=== PATIENT | female | born 1985 | race Caucasian/White ===

== ENCOUNTER 2021-11-12 12:18 | Outpatient (CLI) | payer OTHER, SELFPAY ==
--- NOTE | ~2021-11-12 | US_ITS ---
EXAMINATION:US venous doppler LE RT INDICATION:Right leg pain TECHNIQUE: Multiple grayscale, color flow and Doppler images of the right lower extremity deep venous systems were obtained and reviewed. COMPARISON:No prior studies for comparison. FINDINGS: The common femoral, superficial femoral and popliteal veins demonstrate normal respiratory variation, augmentation and compressibility. Color flow is also seen within the posterior tibial, pe roneal, greater saphenous and profunda veins. IMPRESSION: 1: No lower extremity deep venous thrombosis. Reviewed, dictated and finalized at location B.
== END 2021-11-12 12:19 | disposition home or self-care (01) ==
PROVIDERS: PCP Family Medicine; Visit Provider Physician Assistant
DX: M79.604 Pain in right leg (principal)
CPT/HCPCS: 93971

== ENCOUNTER 2023-03-20 16:49 | Outpatient (CLI) | payer OTHER, SELFPAY ==
--- NOTE | ~2023-03-20 | XR_ITS ---
XR knee LT 3V 03/20/2023 17:12 Indication: Bilateral knee pain Procedure: 3 views left knee Comparison: No prior studies for comparison. Findings: No fracture, subluxation or dislocation. No significant joint effusion. No foreign bodies. Impression: 1: No significant bone or joint abnormality. Reviewed, dictated and finalized at location A. Impression: 1: No significant bone or joint abnormality.
--- NOTE | ~2023-03-20 | XR_ITS ---
XR knee RT 3V 03/20/2023 17:11 Indication: Right knee pain Procedure: 3 views right knee Comparison: No prior studies for comparison. Findings: There is anatomic alignment. No fracture, subluxation or dislocation. No joint effusion. No foreign bodies. Small bone islands in the distal aspect of the femur. Impression: 1: No significant bone or joint abnormality. Reviewed, dictated and finalized at location A. Impression: 1: No significant bone or joint abnormality.
== END 2023-03-20 16:50 | disposition home or self-care (01) ==
PROVIDERS: PCP Family Medicine; Visit Provider Nurse Practitioner Family
DX: M25.561 Pain in right knee (principal); M25.562 Pain in left knee
CPT/HCPCS: 73562

== ENCOUNTER → 2023-04-17 12:26 | Outpatient (CLI) | payer OTHER, SELFPAY ==
--- NOTE | ~2023-04-17 | MR_ITS ---
MRI of the left knee Clinical history: Pain Technique: Coronal proton density and proton density-weighted images, sagittal proton-density and T2 fat-sat images, and axial proton-density fat-saturated images were acquired. Findings: Anterior and posterior cruciate ligaments are intact. Medial collateral ligament and the la teral collateral ligament complex are intact. Popliteus tendon is intact. There is prominent horizontal tear of the posterior horn of the medial meniscus extending to the body segment. No lateral meniscal tear seen. Articular cartilage is well preserved in all 3 joint compartment. Bone marrow signals are unremarkabl e. Extensor mechanism is intact. Minimal joint effusion present. No Young's cyst. Impression: Horizontal tear of the posterior horn and body of the medial meniscus. Reviewed, dictated and finalized at location M. SPECIALIST Impression: Horizontal tear of the posterior horn and body of the medial meniscus.
== END ==
PROVIDERS: PCP Family Medicine; Visit Provider Nurse Practitioner Family
DX: S83.242A Other tear of medial meniscus, current injury, left knee, initial encounter (principal); X58.XXXA Exposure to other specified factors, initial encounter
CPT/HCPCS: 73721

== ENCOUNTER 2025-02-09 10:54 | Outpatient (CLI) | payer OTHER, SELFPAY ==
--- NOTE | ~2025-02-09 | MR_ITS ---
EXAMINATION: MR TMJS DATE: 02/09/2025 12:00 INDICATION: Temporomandibular joint arthralgia TECHNIQUE: Magnetic resonance imaging (MRI) of the temporomandibular joints was performed without intravenous contrast. Sequences included closed-mouth sagittal T2-weighted FSE and PD-weighted FSE and coronal T1-weighted FSE and open-mouth sagittal T2-weighted FSE and PD-weighted FSE and coronal T1-weighted FSE. COMPARISON: None. FINDINGS: Right temporomandibular joint: There is anterior displacement of the disc in the closed mouth position with the posterior band of the disc positioned along the anterior margin of the mandibular condyle. There is partial recapture of the disc in the open-mouth position with the posterior band of the disc between the mandibular condyle and the temporomandibular fossa. The posterior band of the disc shape and with amorphous increased signal consistent with likely secondary degeneration. Moderate temporomandibular osteoarthritis with remodeling of the mandibular condyle which appears smaller than the contralateral left mandibular condyle and with irregularity to the articular cortex. Left temporomandibular joint: There is anterior displacement of the disc in the closed mouth position normal recapture of the disc in the open-mouth position. The disc appears normal in morphology and signal. The mandibular condyle and temporomandibular fossa appear normal with no significant osteoarthritis. IMPRESSION: 1. 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 2. Anterior displacement of the still normal-appearing disc at the left temporomandibular joint which recaptures in the open-mouth position and without significant osteoarthritis at the temporomandibular joint.. Reviewed, dictated and finalized at location A. IMPRESSION: 1. 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 2. Anterior displacement of the still normal-appearing disc at the left temporo mandibular joint which recaptures in the open-mouth position and without signif icant osteoarthritis at the temporomandibular joint..
== END 2025-02-09 10:55 | disposition home or self-care (01) ==
PROVIDERS: PCP Family Medicine
DX: M26.621 Arthralgia of right temporomandibular joint (principal)
CPT/HCPCS: 70336

== ENCOUNTER 2025-02-21 13:41 | Outpatient (CLI) | payer OTHER, SELFPAY ==
--- OUTSIDE RECORDS SUMMARY | 2024-01-11 10:50 | XMS_ITS ---
Author Organization [facility] Address [address] [place], [place] [id number] Care Team Providers Care Medicine Man Name Role Phone Daniel Anand Unavailable Unavailable BRYAN GRIER Unavailable [phone] Allergies No Known Allergies REASON FOR VISIT The patient was experiencing bilateral heel and arch pain. She did some online research and self-diagnosed herself with plantar fascitis. By upgrading her shoes, stretching, and OTC inserts, the painin the right foot resolved. The pain in the left has not Medications Medication SIG (Take, Route, Fr equency, Duration) Notes Start Date End Date Status Multivitamin Active Nabumetone 500 MG 1 tablet Orally Twic e a day; Duration: 14 days 01/11/2024 01/25/2024 Active busPIRone HCl Active LORazepam Active Fluoxetine Active Probiotic Active Claritin Active Vital Signs Weight 185 lbs 01/11/2024 Weight-kg 83.91 kg 01/11/2024 Encounters Encounter Location Date Provider Diagnosis [facility] [address] [place], [place] [id number] 01/11/2024 BRYAN GRIER Plantar fascial fibromatosis M72.2 ; Calcaneal spur, left foot M77.32 and Left foot pain M79.672 Assessments Encounter Date Diagnosis (ICD Code) Assessment Notes Treatment Notes Treatment Clinical Notes Section Notes 01/11/2024 Plantar fascial fibromatosis (ICD-10 - M72.2) Plantar Fascitis: I discussed anti-inflammato ry treatment options and various means of pronation control with the patient. I educated the patient on icing and stretching, supportive shoegear, and the use of orthotic devices. PowerStep Inserts: The patient was dispensed and fitted with over the counter arch supports. The patient was educated on their use and effect. All questions were answered. Shoe Recommendation: Advised patient on appropriate shoe gear for protection, healing and good foot health. 01/11/2024 Calcaneal spur, left foot (ICD-10 - M77.32) 01/11/2024 Left foot pain (ICD-10 - M79.672) Plan Of Treatment Medication Medication Name Sig Start Date Stop Date Notes Nabumetone 500 MG 1 tablet Orally Twic e a day; Duration: 14 days 01/11/2024 01/25/2024 Treatment Notes Assessment Notes Plantar fascial fibromatosis Plantar Fascitis: I discussed anti-inflammatory treatment options and various means of pronation control with the patient. I educated the patient on icing and stretching, supportive shoegear, and the use of orthotic devices. PowerStep Inserts: The patient was dispensed and fitted with over the counter arch supports. The patient was educated on their use and effect. All questions were answered. Shoe Recommendation: Advised patient on appropriate shoe gear for protection, healing and good foot health. Next Appt Details Follow Up: 3 Weeks, Reason: See how relafen and powersteps helped plantar fascitis. Orthotic scanning prn Progress Notes * Neris FRANKSDOB:1985 (39 yo F)Acc No.[id number]:01/11/2024 Progress Notes Patient: Neris JUNIOR Provider: Jeane Grier DPM :1985 A ge:38 Y S ex:Female Date:01/11/2024 Address:[facility] SHAYY FARIAS, JORDY Hidalgo [id number] Subjective: * Chief Complaints: * 1 . The patient was experiencing bilateral heel and arch pain. She did some online research and self-diagnosed herself with plantar fascitis. By upgrading her shoes, stretching, and OTC inserts, the pain in the right foot resolved. The pain in the left has not. * HPI: H PI: New Complaint P atient presents for a new patient consultation. Patient complains of an issue to left foot pain. Patient states pain started in both feet one month ago, but has since stopped in right foot. Pain located on bottom on left foot. Patient denies any injury. MA: LB. * ROS: G eneral / Constitutional: Patient denies c hills, fever, weakness, night sweats. M usculoskeletal: Patient denies c hildhood foot problems, weakness. ? P eripheral Vascular: Patient denies u lceration of feet, cold extremities. ? S kin: Patient denies u lcerations, discoloration. ? N eurologic: Patient denies b alance difficulty, confusion, difficulty speaking, dizziness. * Medical History: P sychiatric Disorder. * Family History: F ather: Diabetic. M other: cancer. * Medications: T aking Claritin , Taking Probiotic , Taking Multivitamin , Taking LORazepam , Taking busPIRone HCl , Taking Fluoxetine , Medication List reviewed and reconciled with the patient * Allergies: N .K.D.A. Objective: * Vitals: S hoe Size: 9.5, Wt:185lbs, Wt-k.91 kg. * Examination: C onstitutional: Constitutional T he patient is awake, alert, well developed, well groomed and well nourished.. D ermatologic: Skin findings: S kin is warm, dry, supple with no breaks in the skin.. V ascular: Dorsalis pedis pulse: 2 /4, bilateral. Posterior tibial pulse: 2 /4, bilaterally. Capillary refill: l ess than 3 seconds. Edema: N o edema, bilateral. N eurologic: Gross sensation G ross sensation is intact to light touch..? M usculoskeletal: Muscle Strength M uscle strength is 5/5 in regards to dorsiflexion, plantarflexion, inversion, and eversion in bilateral lower extremities.. ? R adiographs: Left Foot N ormal: No evidence of fracture, dislocation, or other osseous lesions., Heel Spur: There is a plantar spur noted to the calcaneus.. ? Assessment: * Assessment: 1. P lantar fascial fibromatosis - M72.2 (Primary) 2 . C alcaneal spur, left foot - M77.32 3 . L eft foot pain - M79.672 Plan: * Treatment: * Procedure Codes: 7 3630 X-RAY EXAM OF FOOT, Modifiers: LT * Follow Up: 3 Weeks (Reason: See how relafen and powersteps helped plantar fascitis. Orthotic scanning prn) * Billing Information: * Visit Code: 01329 Office Visit, New Pt., Level 3. * Procedure Codes: 70837 X-RAY EXAM OF FOOT. Modifiers: LT * Electronic signature of BRYAN GRIER DPM on 02/21/2025 at 03:23 PM CDT Sign off status: Pending * Provider: Jeane Grier DPM Date: 0 01/11/2024 Generated for Kate aldana/Kalyan/Jc on: 0 02/21/2025 03:23 PM CDT History and Physical Notes * HPI (History of Present Illness) Category Sub-Category Detail Notes Category Not es HPI New Complaint Patient presents for a new patient consultation. Patient complains of an issue to left foot pain. Patient states pain started in both feet one month ago, but has since stopped in right foot. Pain located on bottom on left foot. Patient denies any injury. MA: LB Examination Category Sub-Category Detail Notes Category Not es Dermatologic Skin findings: Skin is warm, dr y, supple with no breaks in the skin. Neurologic Gross sensation Gross sensation is intact to light touch. Vascular Dorsalis pedis pulse: 2/4, bilateral Edema: No edema, bilateral Capillary refill: less than 3 seconds Posterior tibial pulse: 2/4, bilaterally Musculoskeletal Muscle Strength Muscle strength is 5/5 in regards to dorsiflexion, plantarflexion, inversion, and eversion in bilateral lower extremities. Constitutional Constitutional The patient is a wake, alert, well developed, well groomed and well nourished. Radiographs Left Foot Normal: No evide nce of fracture, dislocation, or other osseous lesions., Heel Spur: There is a plantar spur noted to the calcaneus.
--- NOTE | ~2025-02-21 | MM_ITS ---
EXAMINATION: MM diagnostic geraldine BI w mickey HISTORY: Palpable abnormality in the right TECHNIQUE: [Diagnostic images of both breasts were performed using full field digital mammography. 3-D tomosynthesis were also obtained and synthetic 2-D images were generated. CAD analysis was submitted and interpreted. High- resolution bilateral breast ultrasound was performed.] ] COMPARISON: None available BREAST PARENCHYMAL COMPOSITION: The breasts are almost entirely fatty. FINDINGS: MAMMOGRAPHIC FINDINGS: No suspicious calcifications. Focal asymmetry in the lower inner quadrant of the right breast, posterior depth. The finding is probably postsurgical change. No sonographic correlate. The finding is probably benign. Focal asymmetry in the central left breast, posterior depth. The finding is probably postsurgical change. The finding is probably benign. Asymmetry in the medial left breast, posterior depth. No sonographic correlate. The findings probably benign ULTRASOUND: No sonographic abnormality identified in the area of palpable concern in the right breast at 3:00 position 7 cm from the nipple. There is a 4 x 4 x 3 mm hypoechoic cyst versus solid mass in the left breast at the 8:30 position 10 cm from the nipple anterior depth. Margins are partially circumscribed. No internal color Doppler flow. No posterior acoustic shadowing. There is a 3 x 4 x 3 mm anechoic cyst in the left breast and 9:00 position 8 cm from nipple. There is a 7 x 7 x 7 mm hypoechoic cyst versus solid mass in the left breast at 11:00 position 5 cm from the nipple middle depth. Anterior margin is hyperechoic possibly partially calcified. No internal color Doppler flow. Small and posterior acoustic shadowing. The finding is probably benign. The finding may represent fat necrosis. IMPRESSION/RECOMMENDATION: 1. Probably benign findings in both breasts. A bilateral diagnostic mammogram and a bilateral diagnostic breast ultrasound in 6 months is recommended. BI-RADS 3-Probably benign-Short interval follow-up suggested. Reviewed, dictated and finalized at location [facility]. IMPRESSION/RECOMMENDATION: 1. Probably benign findings in both breasts. A bilateral diagnostic mammogram a nd a bilateral diagnostic breast ultrasound in 6 months is recommended. BI-RADS 3-Probably benign-Short interval follow-up suggested.
--- NOTE | ~2025-02-21 | US_ITS ---
Please see the mammogram report from 02/21/2025 for the combined mammogram and breast ultrasound report for the case from 02/21/2025. Reviewed, dictated and finalized at location Q.
--- OUTSIDE RECORDS SUMMARY | 2025-02-21 15:24 | XMS_ITS | Clinical Summary ---
Author Organization [facility] Address [address] [place] [address] Care Team Providers Care Assistant Professor Surgical Technology Name Role Phone Daniel Anand MD Primary Care Provider [phone] Allergies No known active allergies Medications clonazePAM (KlonoPIN) 0.5 mg tablet take 1 tablet by oral route 2 times every day 0 0 4 Active Additional Information Patient not taking.Reported on 04/23/2021 norethindrone-e .estradiol-iron (LOESTRIN 24 FE) 1 mg-20 mcg (24)/75 mg (4) per tablet take 1 tablet by oral route every day 28 12 5 Active Additional Information Patient not taking.Reported on 06/25/2022 FLUoxetine (PROzac) 40 mg capsule take 1 capsule by oral route every day in the morning 7 0 5 Active L. gasseri-B. bifidum-B longum (PROBIOTIC COLON CARE) 1.5 billion cell capsule 0 0 6 Active Additional Information Patient not taking.Reported on 06/25/2022 busPIRone (BUSPAR) 15 mg tablet Take 1 tablet (15 mg total) by mouth 2 (two) times a day 1 Active hydrOXYzine (ATARAX) 10 mg tablet TAKE 1 TO 2 TABLETS BY MOUTH ONCE DAILY NEEDED FOR ANXIETY 3 Active heparin 5,000 unit/mL injection Inject 1 mL (5,000 Units total) under the skin once 3 Active loratadine (CLARITIN) 10 mg tablet Take 1 tablet (10 mg total) by mouth daily Active multivitamin tablet Take 1 tablet by mouth daily Active Saccharomyces boulardii (FLORASTOR) 250 mg capsule Take by mouth Activ e HYDROcodone-galina taminophen (NORCO) 5-325 mg per tablet 4 Active LORazepam (ATIVAN) 1 mg tablet TAKE 1/2 (ONE-HALF) TABLET BY MOUTH TWICE DAILY NEEDED FOR ANXIETY 3 Active naloxone (NARCAN) 4 mg/actuation spray,non-aeros ol EMERGENCY USE ONLY: Administer 1 spray (4 mg) in one nostril one time. May repeat in alternating nostrils every 2-3 min until responsive or EMS arrives. 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 S/P bilateral mastectomy 10/28/2016 023 Absence of breast, acquired 10/24/201609/06 BRCA positive 09/01/2016 09/22/2022 Anxiety 03/27/2014 Overview (09/12/2016): Anxiety Depression 12/22/2012 Overview (09/12/2016): Depression Surgical History Surgery Date Site/Laterality Comments OTHER SURGICAL HISTORY 2008 : OTHER SURGICAL HISTORY 2008 : Medical History Medical History Date Comments Hx Other Medical 2008 ; Outc ome: 36 week 6 lb(s) 4 oz Male Hx Other Medical 2008 ; Outc ome: 36 week 5 lb(s) 12 oz Male Family History Medical History Relation Name Comments Diabetes Father Diabetes mellit us; Hypertension Father Hypertension; Breast cancer Mother 2 Cancer, breast ; Cause of : Cancer, breast Asthma Sister Asthma; Relation Name Status Comments Father Mother 1 (Age 49) Mother 2 Sister Social History Tobacco Use Types Packs/Day Years Used Date Smoking Tobacco: Never Tobacco Cessation:Counseling Given: Not Answered Alcohol Use Standard Drinks/Week Comments Yes 0 (1 standard drink = 0.6 oz pur e alcohol) Comments Unknown Sex and Gender Information Value Date Recorded Sex Assigned at Not on file 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 Gender Identity Not on file Sexual Orientation Not on file Obstetrics History Last Filed Vital Signs Vital Sign Reading Time Taken Comments Blood Pressure 102/74 09/23/2023 8:07 AM CDT Pulse 65 09/23/2023 8:07 AM CDT Temperature 36.8 C (98.3 F) 09/23/2023 8:07 AM CDT Respiratory Rate 16 09/23/2023 8:07 AM CDT Oxygen Saturation 99% 09/23/2023 8:07 AM CDT Inhaled Oxygen Concentration - - Weight 83.9 kg (185 lb) 09/23/2023 8:07 AM CDT Height 170.2 cm (5' 7) 09/23/2023 8:07 AM CDT Body Mass Index 28.98 09/23/2023 8:07 AM CDT Plan of Treatment Health Maintenance Due Date Last Done Comments Cervical Cancer Screening 1986 Depression Screening 1985 Hepatitis C Screening 1986 DTaP/Tdap/Td Vaccine (1 - Tdap) 1997 Varicella Vaccines (1 of 2 - 13+ 2-dose series) 11/17/1999 Hepatitis B Screening 2004 Regular Well Visit/Exam 18-64 2004 HPV Vaccines (1 - 3-dose SCD M series) 2013 Covid-19 Vaccine (3 - 2024-2 6 season) 2025 07/25/2020, 07/03/2020 Influenza Vaccine (#1) 2025 , 03/23/2018 Pneumococcal vaccine <65 Aged Out No longer eligible based on patient's age to complete this topic Insurance [facility] PL[facility]PPO Address: [facility] [address] [place] [address] [facility] Address: [facility] [address] [place] [address] Care Teams Assistant Professor Surgical Technology Relationship Specialty Start Date End Date Daniel Anand MD PCP - General 09/05/16
--- OUTSIDE RECORDS SUMMARY | 2025-02-21 15:24 | XMS_ITS | Patient Health Record ---
Author Organization [facility] Address [address] [place], [place] [id number] Care Team Providers Care Quantitative Research Analyst Name Role Phone Daniel Anand Unavailable Unavailable Allergies No Known Allergies Reason For Referral No Information Medications Medication SIG (Take, Route, Frequency, Duration) Notes Start Date End Date Status Probiotic Active Multivitamin Active Claritin Active LORazepam Active busPIRone HCl Active Fluoxetine Active Plan Of Treatment No Information Insurance Providers Payer Name Payer Address Payer Phone Subscriber Number Group Number Insured Name Patient Relationship to Insured Coverage Start Date Coverage End Date [facility] [address] [address] [place] [address] [id number] Neris Franks Self - patient is the insured Medical (General) History Medical History History ICD Code Psychiatric Disorder
--- OUTSIDE RECORDS SUMMARY | 2025-02-21 15:24 | XMS_ITS | Clinical Summary ---
Author Organization [employer] [place] Address [address] [place] [address] Phone Care Team Providers Care Outside Barrel Lathe Operator Name Role Phone Daniel Anand MD Primary Care Provider [phone]- [phone] Allergies No known active allergies Medications FLUoxetine (PROzac) 20 mg capsule 40 mg. 1 9 Active busPIRone (BUSPAR) 15 mg Tablet TAKE 1 TABLET BY MOUTH TWICE DAILY 1 Active Saccharomyces boulardii 250 mg capsule Take by mouth. supp Active multivitamin tablet Take 1 Tablet by mouth daily. supp Active loratadine 10 mg tablet Take 10 mg by mouth daily. allergies Active naproxen (NAPROSYN) 500 mg tablet Take 1 Tablet (500 mg) by mouth 2 times daily with meals. 28 Tablet 3 Active LORazepam (ATIVAN) 1 mg tablet TAKE 1/2 (ONE-HALF) TABLET BY MOUTH TWICE DAILY NEEDED FOR ANXIETY 3 Active naloxone (NARCAN) 4 mg/spray [place], Non-Aerosol EMERGENCY USE ONLY: Administer 1 spray (4 mg) in one nostril one time. May repeat in alternating nostrils every 2-3 min until responsive or EMS arrives. 2 Each 3 08/27/2023 11:42 AM CDT 4 Active fluconazole (DIFLUCAN) 150 mg tabletIndicatio ns:Yeast infection of the vagina Take 1 Tablet (150 mg) by mouth daily. 3 Tablet 1 4 Active Active Problems Patient Care Coordination No te Formatting of this note migh t be different from the original. Primary Care: Daniel Anand MD Referring Provider: No referring provider defined for this encounter. 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 Prophylactic breast removal 11/25/2022 S/P bilateral mastectomy 10/28/2016 Absence of breast, acquired 10/24/2016 BRCA positive 09/01/2016 Family history of breast cancer 08/04/2016 Depression Depression Anxiety Resolved Problems Problem Noted Date Diagnosed Date Resolved Date Breast mass, left 09/12/2016 10/28/2016 Encounters Date Type Department Care Team Description 02/20/2025 Orders Only [facility] Plastic Surgery at the [place] [address] [place] [id number] Mary Gorman RN S/P TRAM (transverse rectus abdominis muscle) flap breast reconstruction (Primary Dx); Prophylactic breast removal 02/14/2025 External Device Data STL ABSTRACTION Provider, Abstract 02/07/2025 External Device Data STL ABSTRACTION Provider, Abstract 01/24/2025 External Device Data STL ABSTRACTION Provider, Abstract 01/11/2025 External Device Data STL ABSTRACTION Provider, Abstract 12/21/2024 External Device Data STL ABSTRACTION Provider, Abstract 12/21/2024 External Device Data STL ABSTRACTION Provider, Abstract 12/16/2024 10:00 AM CDT Office Visit [facility] Plastic Surgery at the [facility] [address] [place] [address] Daniel Thao MD Prophylactic breast removal (Primary Dx); S/P TRAM (transverse rectus abdominis muscle) flap breast reconstruction 11/23/2024 External Device Data STL ABSTRACTION Provider, Abstract from Last 3 Months Family History Medical History Relation Name Comments Diabetes Father Breast Cancer Mother Relation Name Status Comments Father Mother Social History Tobacco Use Types Packs/Day Years Used Date Smoking Tobacco: Never Smokeless Tobacco: Never Alcohol Use Standard Drinks/Week Comments Yes 0 (1 standard drink = 0.6 oz pur e alcohol) rarely Feeling Safe Answer Date Recorded Are you in a relationship wi th someone who hurts you emotionally and/or physically? 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 Gender Identity Not on file Sexual Orientation Not on file Last Filed Vital Signs Vital Sign Reading Time Taken Comments Blood Pressure 102/78 12/16/2024 10:08 AM CDT Pulse 85 08/27/2023 11:50 AM CDT Temperature 36.7 C (98.1 F) 08/27/2023 11:50 AM CDT Respiratory Rate 16 08/27/2023 11:50 AM CDT Oxygen Saturation 97% 08/27/2023 11:50 AM CDT Inhaled Oxygen Concentration - - Weight 84.4 kg (186 lb) 12/16/2024 10:08 AM CDT Height 170.2 cm (5' 7) 12/16/2024 10:08 AM CDT Body Mass Index 29.13 12/16/2024 10:08 AM CDT Plan of Treatment Health Maintenance Due Date Last Done Comments Pre-Diabetes and Diabetes Screening 1986 DTAP/TDAP/TD VACCINES (1 - Tdap) 2005 HEPATITIS B VACCINES (1 of 3 - 19+ 3-dose series) 2005 HPV VACCINES (1 - 3-dose SCDM series) 2013 PAP SMEAR 12/23/2020 12/23/2017, 12/06, 11/28/2016 CERVICAL CANCER SCREENING 12/23/2022 HPV/Cotest (21-29) 12/23/2022 12/23/2017, 0 12/23/2017, 11/28/2016 HPV/Cotest (30-65) 12/23/2022 12/23/2017, 0 12/23/2017, 11/28/2016 Preventative Visit- Commercial 06/08/2024 12/23/2017 , 11/28/2016 INFLUENZA VACCINE (#1) 2025 Medical Devices Implanted Type Area Global Program Director Device Identifier Shelf Expiration Date Model / Serial / Lot Information Specialist Clip Surgiclip Ii Grayson 9.75in [id number] - [id number] Implanted:Qty: 1 on 11/25/2022 by Daniel Thao MD at [facility] Clip N/A: Abdomen MEDTRONIC - COVIDIEN [id number] 07/08/2027 [id number] / / [id number] Information Specialist Clip Surgiclip Iii Ti Grayson Sm 9in 801836 - [id number] Implanted:Qty: 1 on 11/25/2022 by Daniel Thao MD at [facility] Clip N/A: Abdomen MEDTRONIC - COVIDIEN [id number] 09/06/2027 [id number] / / [id number] Clip Micro Coles 6s [id number] - [id number] Implanted:Qty: 1 on 11/25/2022 by Daniel Thao MD at [facility] Clip N/A: Abdomen VITALITEC INTL [id number] 12/05/2026 [id number] / / [id number] Clip Micro Coles 6s Llz6386 - [id number] Implanted:Qty: 1 on 11/25/2022 by Daniel Thao MD at [facility] Clip N/A: Abdomen VITALITEC INTL [id number] 12/05/2026 [id number] / / [id number] Clip Micro Coles 6s [id number] - [id number] Implanted:Qty: 1 on 11/25/2022 by Daniel Thao MD at [facility] Clip N/A: Abdomen VITALITEC INTL [id number] 12/05/2026 [id number] / / [id number] Clip Micro Coles 6s Iqw2433 - [id number] Implanted:Qty: 1 on 11/25/2022 by Daniel Thao MD at [facility] Clip N/A: Abdomen VITALITEC INTL [id number] 12/05/2026 [id number] / / [id number] Clip Micro Coles 6s Tws4395 - [id number] Implanted:Qty: 1 on 11/25/2022 by Daniel Thao MD at [facility] Clip N/A: Chest VITALITEC INTL [id number] 12/05/2026 [id number] Clip Micro Coles 6s [id number] - [id number] Implanted:Qty: 1 on 11/25/2022 by Daniel Thao MD at [facility] Clip N/A: Chest VITALITEC INTL [id number] 12/05/2026 [id number] Clip Micro Coles 6s [id number] - [id number] Implanted:Qty: 1 on 11/25/2022 by Daniel Thao MD at [facility] Clip N/A: Chest VITALITEC INTL [id number] 12/05/2026 [id number] Clip Micro Coles 6s [id number] - [id number] Implanted:Qty: 1 on 11/25/2022 by Daniel Thao MD at [facility] Clip N/A: Chest VITALITEC INTL [id number] 12/05/2026 [id number] Information Specialist Clip Surgiclip Ii Grayson 9.75in [id number] - [id number] Implanted:Qty: 1 on 11/25/2022 by Daniel Thao MD at [facility] Clip N/A: Chest MEDTRONIC - COVIDIEN [id number] 07/08/2027 [id number] / / [id number] Information Specialist Clip Surgiclip Iii Ti Grayson Sm 9in 901865 - [id number] Implanted:Qty: 1 on 11/25/2022 by Daniel Thao MD at [facility] Clip N/A: Chest MEDTRONIC - COVIDIEN [id number] 09/06/2027 [id number] / / [id number] Float Operator Coles Vasc 2.5 Mm [id number] - [id number] Implanted:Qty: 1 on 11/25/2022 by Daniel Thao MD at [facility] Other Left: Chest SYNOVIS- MICRO CO ALLIANCE [id number] 07/14/2027 [id number] / / [id number] Float Operator Microvasc Anastomotic 2.0mm Nmv0801 - [id number] Implanted:Qty: 1 on 11/25/2022 by Daniel Thao MD at [facility] Other Left: Chest SYNOVIS- MICRO [employer] ALLIANCE [id number] 10/03/2026 [id number] / / [id number] Float Operator Coles Vasc 2.5 Mm Iwe6836 - [id number] Implanted:Qty: 1 on 11/25/2022 by Daniel Thao MD at [facility] Other Right: Chest SYNOVIS- MICRO CO ALLIANCE [id number] 07/08/2026 BOQ9568 / / [id number] Alloderm Select Tissue Matrix Rtu Implanted:Qty: 1 on 10/16/2016 by Nirmal Combs MD at [facility] Right: Breast 08/05/2018 [id number] / / [id number] Alloderm Select Implanted:Qty: 1 on 10/16/2016 by Sheila Ruiz MD at [facility] Left: Breast 06/18/2018 [id number] / / [id number] Explanted Type Area Global Program Director Device Identifier Shelf Expiration Date Model / Serial / Lot Remote Control Mirror Installer Mmry 400ml 133mx-12 - [id number] Implanted:Qty : 1 on 10/16/2016 by Nirmal Combs MD at [facility] Explanted:Qty : 1 on 01/13/2017 by Nirmal Combs MD at [facility] Mammary Right: Breast ALLERGAN- MEDICAL 07/19/2020 133MX-12 / [id number] / [id number] Remote Control Mirror Installer Mmry 400ml 133mx-12 - [id number] Implanted:Qty : 1 on 10/16/2016 by Nirmal Combs MD at [facility] Explanted:Qty : 1 on 01/13/2017 by Nirmal Combs MD at [facility] Mammary Left: Breast ALLERGAN- MEDICAL 07/15/2020 133MX-12 / [id number] / Justine Inspira Cohesive Implanted:Qty : 1 on 01/13/2017 by Nirmal Combs MD at [facility] Explanted:Qty : 1 on 11/25/2022 by Daniel Thao MD at [facility] Mammary Right: Breast ALLERGAN- MEDICAL [id number] 07/29/2021 SCX-X470 / [id number] / Description:REQUISITION , 72 18321 Natrelle Inspira Cohesive Implanted:Qty : 1 on 01/13/2017 by Nirmal Combs MD at [facility] Explanted:Qty : 1 on 11/25/2022 by Daniel Thao MD at [facility] Mammary Left: Breast ALLERGAN- MEDICAL [id number] 08/05/2021 SCX-495 / [id number] / Description:REQUISITION , 72 08162. Inspira Re-Sterilizab le Sizer 470cc Explanted:Qty : 1 on 01/13/2017 by Nirmal Combs MD at [facility] Bilateral: Breast ALLERGAN- MEDICAL 07/22/2021 MSZ-X470 / [id number] / Description:REQUISITION, 725 7123 Procedures Procedure Name Priority Date/Time Associated Diagnosis Comments CERV/VAG CYTO SCREEN PAP RLFX HPV Routine 12/23/2017 11:17 AM CDT Well woman exam from Last 3 Months or Most Recently Relevant to Health Maintenance Results * (ABNORMAL) CERV/VAG CYTO SCREEN PAP RLFX HPV (12/23/2017 11:17 AM CDT) Pathologist [facility] CLINICAL INFORMATION SCREENING 01/02/2018 11:05 AM CDT [facility] LAST MENSTRUAL PERIOD SEE COMMENT 01/02/2018 11:05 AM CDT [facility] Comment:INFORMATION NOT PROV IDED PREV PAP: SEE COMMENT 01/02/2018 11:05 AM CDT [facility] Comment:[id number] NIL PREV BX: SEE COMMENT 01/02/2018 11:05 AM CDT [facility] Comment:INFORMATION NOT PROV IDED SOURCE Endocervix 01/02/2018 11:05 AM CDT [facility] ADEQUACY: SEE COMMENT 01/02/2018 11:05 AM CDT [facility] Comment:SATISFACTORY FOR AMANDA LUATION GENERAL CATEGORIZATION: SEE COMMENT(A) 01/02/2018 11:05 AM CDT [facility] Comment:EPITHELIAL CELL ABNO RMALITY PAP INTERP SEE COMMENT(A) 01/02/2018 11:05 AM CDT [facility] Comment: Atypical Squamous Cells of Undetermined Significance (ASC-US) Reactive cellular changes associated with repair COMMENT SEE COMMENT 01/02/2018 11:05 AM CDT [facility] Comment: This Pap test has been evaluated with computer assisted technology. LABORER SAWMILL: SEE COMMENT 2017 11:05 AM CDT [facility] Comment: YQ, CT(ASCP) CT screening location: [place] [address] [place] [address] PATHOLOGIST SEE COMMENT 01/02/2018 11:05 AM CDT [facility] Comment: Eri Monk M.D., Board Certified in Anatomic Pathology, Clinical Pathology and Cytopathology, Specializing in Urologic Pathology [phone] (electronic signature) EXPLANATORY NOTE SEE COMMENT 018 11:05 AM CDT [facility] Comment: EXPLANATORY NOTE: The Pap is a screening test for cervical cancer. It is not a diagnostic test and is subject to false negative and false positive results. It is most reliable when a satisfactory sample, regularly obtained, is submitted with relevant clinical findings and history, and when the Pap result is evaluated along with historic and current clinical information. Genital SWAB OF ENDOCERVIX / Unknown Collection / Unknown 12/23/2017 11:17 AM CDT 12/23/2017 1:16 PM CDT Narrative [facility] - 01/02/2018 11:05 AM CDT Performing Organization Information: Site ID: [place] Name: [facility] Address: [address] [place] [address] Director: Young Pearson us [place]ce [place] DO PATHOLOGY/CYTOLOGY ORDERABLES Fi nal Result [facility] from Last 3 Months or Most Recently Relevant to Health Maintenance Insurance [facility] [employer] [id number] RX [employer] (INTERNAL) [facility] Internal Plans Advance Directives For more information, please contact: [phone] * Full Code (Latest Code Status on File) Date Activated Date Inactivated Comments 11/25/2022 4:34 PM 11/28/2022 1:06 PM * Full Code Date Activated Date Inactivated Comments 11/25/2022 6:56 AM 11/25/2022 4:34 PM * Full Code Date Activated Date Inactivated Comments 01/13/2017 1:37 PM 01/13/2017 11:01 PM * Full Code Date Activated Date Inactivated Comments 01/13/2017 11:00 AM 01/13/2017 1:37 PM * Full Code Date Activated Date Inactivated Comments 10/16/2016 5:17 PM 10/17/2016 11:39 AM Care Teams Outside Barrel Lathe Operator Relationship Specialty Start Date End Date Daniel Anand MD PCP - General Family Practice 08/04/16
--- OUTSIDE RECORDS SUMMARY | 2025-02-21 15:24 | XMS_ITS | Encounter Summary ---
Author Organization [facility] Address [address] [place] [address] Care Team Providers Care Head Buyer Tobacco Name Role Phone Daniel Anand MD Primary Care Provider +1- [phone] Reason for Referral * Radiology Services (Routine) - Authorized Specialty Diagnoses / Procedures Referred By Kelvin salazar Referred To Contact Diagnoses S/P TRAM (transverse rectus abdominis muscle) flap breast reconstruction Prophylactic breast removal Procedures MAMMO 3D MANNY DIAGNOSTIC BILAT W OR WO CAD CHG DIAGNOSTIC MAMMOGRAPHY COMPUTER-AIDED DETCJ BI CHG DIGITAL BREAST TOMOSYNTHESIS BILATERAL Daniel Thao MD [address] [place] [address] Phone: tel: fax: Referral ID Status Reason Start Date Expiration Date V isits Requested Visits Authorized [id number] Authorized 02/20/2025 03/23/2026 1 1 Encounter Details Date Type Department Care Team (Late st Contact Info) Description 02/20/2025 Orders Only [facility] Plastic Surgery at the [facility] [address] [place] [id number] Mary Gorman RN S/P TRAM (transverse rectus abdominis muscle) flap breast reconstruction (Primary Dx); Prophylactic breast removal Social History Tobacco Use Types Packs/Day Years [...] on file 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 Gender Identity Not on file Sexual Orientation Not on file documented as of this encounter Plan of Treatment Scheduled Orders Name Type Priority Associated Diagnoses Orde r Schedule MAMMO 3D MANNY DIAGNOSTIC BILAT W OR WO CAD Imaging Routine S/P TRAM (transverse rectus abdominis muscle) flap breast reconstruction Prophylactic breast removal 1 Occurrences starting 02/20/2025 until 08/20/2026 documented as of this encounter Visit Diagnoses Diagnosis S/P TRAM (transverse rectus abdominis muscle) flap breast reconstruction- Primary Prophylactic breast removal documented in this encounter Care Teams Head Buyer Tobacco Relationship Specialty Start Date End Date Daniel Anand MD PCP - General Family Practice 08/04/16 documented as of this encounter
--- OUTSIDE RECORDS SUMMARY | 2025-02-21 15:24 | XMS_ITS | Patient Health Record ---
Author Organization [facility] Address [address] [facility] [address] [place] [address] Care Team Providers Care Cdl A Driver Name Role Phone Daniel Anand MD Primary Care Provider Christine Cuello Unavailable [phone] Allergies No Known Allergies Results Component Value Reference Range Notes UDT Reviewed date:01/02/2025 01:45:05 PM Interpretation: Performing Lab: Notes/Report: THC neg 0 - 50 ng/ml Cocaine neg 0 - 300 ng/ml Amphetamine neg 0 - 1000 ng/ml Buprenorphine (BUP) neg 0 - 10 ng/ml Secobarbital (Bar) neg 0 - 300 ng/ml Oxazepam (BZO) pos 0 - 300 ng/ml 9-tcnwiwolay-2,8-shbxzmkm-3,3-diphenylpyrrolidine (DOYLE P) neg 0 - 300 ng/ml Methamphetamine (MET) neg 0 - 1000 ng/ml Methylenedioxymethamphetamine (MDMA) neg 0 - 500 ng/ml Morphine (MOP 300/DIF0917) neg 0 - 300 ng/ml Methadone (MTD) neg 0 - 300 ng/ml Phencyclidine (PCP) neg 0 - 25 ng/ml Nortriptyline (TCA) neg 0 - 1000 ng/ml Oxycodone neg 0 - 300 ng/ml UDT Reviewed date:08/08/2024 03:59:37 PM Interpretation: Performing Lab: Notes/Report: THC NEG 0 - 50 ng/ml Cocaine NEG 0 - 300 ng/ml Amphetamine NEG 0 - 1000 ng/ml Buprenorphine (BUP) NEG 0 - 10 ng/ml Secobarbital (Bar) NEG 0 - 300 ng/ml Oxazepam (BZO) NEG 0 - 300 ng/ml 3-rtubqrzrqe-8,9-gbhxmyem-4,3-diphenylpyrrolidine (DOYLE P) NEG 0 - 300 ng/ml Methamphetamine (MET) NEG 0 - 1000 ng/ml Methylenedioxymethamphetamine (MDMA) NEG 0 - 500 ng/ml Morphine (MOP 300/[id number]) NEG 0 - 300 ng/ml Methadone (MTD) NEG 0 - 300 ng/ml Phencyclidine (PCP) NEG 0 - 25 ng/ml Nortriptyline (TCA) NEG 0 - 1000 ng/ml Oxycodone NEG 0 - 300 ng/ml x NEG 0 - 300 ng/ml Reason For Referral No Information Medications Medication SIG (Take, Route, Frequency, Duration) Notes Start Date End Date Status FLUoxetine HCl 20 MG Capsule 1 capsule Oral Once a day; Duration: 90 days Not-Takin g FLUoxetine HCl 40 MG Capsule 1 capsule Oral Once a day; Duration: 90 days Active LORazepam 0.5 MG Tablet 0.5 tablet Oral Once a day; Duration: 30 days As needed PRN 01/02/2025 Active FLUoxetine HCl 20 MG Capsule 1 capsule Oral Once a day; Duration: 90 days Active busPIRone HCl 15 MG Tablet Take 1 tablet by mouth twice daily Oral Twice a day; Duration: 90 days Active Social History Tobacco Use: Social History Observation Description Date Details (start date - stop date) Never Smoker NA - NA Sex Assigned At : Social History Observation Description Sex Assigned At Female Social History Miscellaneous: Social Info Question Answer Notes Advance Care Planning Are you your own decision-maker Yes Do you have Power of [employer] [employer] or [facility]? No Tobacco Use: Social Info Question Answer Notes Tobacco Control (Standard) Tobacco use: Nonsmoker Additional Details Category Social Info Options Details Migrated Social History Migrated Social History Alcohol Intake: Occasional 10/13/2023,Tobacco Years: Never smoker 10/13/2023 Drug/Alcohol: Do you smoke marijuana? Den ies Do you drink alcohol? 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 [address] [address] 04/12/2024 Christine Therceli [facility] [place] [address] [address] 05/10/2024 Christine Therceli Major depressive disorder, recurrent, mild F33.0 ; Generalized anxiety disorder F41.1 and Other [facility] (current) drug therapy Z79.899 [facility] [employer] [address] [address] 08/08/2024 Christine Therceli Major depressive disorder, recurrent, mild F33.0 ; Generalized anxiety disorder F41.1 and Other watermelon inspector (current) drug therapy Z79.899 [facility] [employer] [facility] [address] [address] 10/03/2024 Christine Thery Encounter for screening for depression Z13.31 ; Major depressive disorder, recurrent, mild F33.0 ; Generalized anxiety disorder F41.1 and Other watermelon inspector (current) drug therapy Z79.899 [facility] [employer] [facility] [address] [address] 01/02/2025 Christine Thery Encounter for screening for depression Z13.31 ; Major depressive disorder, recurrent, mild F33.0 ; Generalized anxiety disorder F41.1 and Other watermelon inspector (current) drug therapy Z79.899 [facility] [employer] [facility] [address] [address] 04/13/2024 Christine Edmondsceli [facility], [facility] [address] [place] [address] 07/10/2024 Christine Dominguez Major depressive disorder, recurrent, mild F33.0 Assessments Encounter Date Diagnosis (ICD Code) Assessment Notes Treatment Notes Treatment Clinical Notes Section Notes 05/10/2024 Major depressive disorder, recurrent, mild (ICD-10 - F33.0) 1. Mild recurrent major depression - Prozac 60 mg daily, Discuss LESTER-2 test to test for ADHD patient will consider educated on all medications, benefits, side effects and risk, and educated on depression, anxiety, and ADHD, mood d/o and educated on compliance of medications, metabolic and movement d/o education appointment is, continue therapy discussion with patient about course of treatment and patient instructions. education on serotonin syndrome SSRI/SNRI side effects discussed including but not limited to, gastric upset, nausea, vomiting, diarrhea and/or constipation, weight changes, sexual side effects including loss of libido, increased suicidal thoughts/behaviors in children and young adults, and serotonin syndrome. 2. Generalized anxiety disorder -lorazepam 0.5 mg a day PRN- Buspar 15 mg twice a day Benzodiazepines are a class of medicines that are widely used to treat conditions including anxiety, insomnia, and seizures (for example, Xanax, Valium, Ativan and Klonopin). The FDA conducted and reviewed several studies showing that serious health risks are associated with the combined use of opioids and benzodiazepines, as well as other drugs that depress the central nervous system or alcohol. In an effort to decrease the use of opioids and benzodiazepines, or opioids and other central nervous system depressants together, the FDA is adding Boxed Warnings - its strongest warnings include to the drug labeling of prescription opioid pain medications, prescription opioid cough medicines, and benzodiazepines (nearly 400 products in total). This type of warning is intended to call attention to serious or life-threatening risks. The specific risks include extreme sleepiness, respiratory depression, coma and . Additional changes include revisions to the Warnings and Precautions, Drug Interactions, and Patient Counseling Information sections of the labeling. 3. Long-term drug therapy 07/10/2024 Major depressive disorder, recurrent, mild (ICD-10 - F33.0) 08/08/2024 Major depressive disorder, recurrent, mild (ICD-10 - F33.0) 1. major depression - Prozac 60 mg daily, Discuss LESTER-2 test to test for ADHD patient will consider educated on all medications, benefits, side effects and risk, and educated on depression, anxiety, and ADHD, mood d/o and educated on compliance of medications, metabolic and movement d/o education appointment is, continue therapy discussion with patient about course of treatment and patient instructions. education on serotonin syndrome SSRI/SNRI side effects discussed including but not limited to, gastric upset, nausea, vomiting, diarrhea and/or constipation, weight changes, sexual side effects including loss of libido, increased suicidal thoughts/behaviors in children and young adults, and serotonin syndrome. 2. Generalized anxiety disorder -lorazepam 0.5 mg a day PRN- Buspar 15 mg twice a day Benzodiazepines are a class of medicines that are widely used to treat conditions including anxiety, insomnia, and seizures (for example, Xanax, Valium, Ativan and Klonopin). The FDA conducted and reviewed several studies showing that serious health risks are associated with the combined use of opioids and benzodiazepines, as well as other drugs that depress the central nervous system or alcohol. In an effort to decrease the use of opioids and benzodiazepines, or opioids and other central nervous system depressants together, the FDA is adding Boxed Warnings - its strongest warnings include to the drug labeling of prescription opioid pain medications, prescription opioid cough medicines, and benzodiazepines (nearly 400 products in total). This type of warning is intended to call attention to serious or life-threatening risks. The specific risks include extreme sleepiness, respiratory depression, coma and . Additional changes include revisions to the Warnings and Precautions, Drug Interactions, and Patient Counseling Information sections of the labeling. 3. Long-term drug therapy 01/02/2025 Encounter for screening for depression (ICD-10 - Z13.31) 1. 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 education on serotonin syndrome SSRI/SNRI side effects discussed including but not limited to, gastric upset, nausea, vomiting, diarrhea and/or constipation, weight changes, sexual side effects including loss of libido, increased suicidal thoughts/behaviors in children and young adults, and serotonin syndrome. 2. Generalized anxiety disorder -lorazepam 0.25 mg a day PRN- Buspar 15 mg twice a day Benzodiazepines are a class of medicines that are widely used to treat conditions including anxiety, insomnia, and seizures (for example, Xanax, Valium, Ativan and Klonopin). The FDA conducted and reviewed several studies showing that serious health risks are associated with the combined use of opioids and benzodiazepines, as well as other drugs that depress the central nervous system or alcohol. In an effort to decrease the use of opioids and benzodiazepines, or opioids and other central nervous system depressants together, the FDA is adding Boxed Warnings - its strongest warnings include to the drug labeling of prescription opioid pain medications, prescription opioid cough medicines, and benzodiazepines (nearly 400 products in total). This type of warning is intended to call attention to serious or life-threatening risks. The specific risks include extreme sleepiness, respiratory depression, coma and . Additional changes include revisions to the Warnings and Precautions, Drug Interactions, and Patient Counseling Information sections of the labeling. 3. Long-term drug therapy 10/03/2024 Encounter for screening for depression (ICD-10 - Z13.31) 1. major depression - Prozac 60 mg daily, Discuss LESTER-2 test to test for ADHD patient will consider educated on all medications, benefits, side effects and risk, and educated on depression, anxiety, and ADHD, mood d/o and educated on compliance of medications, metabolic and movement d/o education appointment is, continue therapy discussion with patient about course of treatment and patient instructions. education on serotonin syndrome SSRI/SNRI side effects discussed including but not limited to, gastric upset, nausea, vomiting, diarrhea and/or constipation, weight changes, sexual side effects including loss of libido, increased suicidal thoughts/behaviors in children and young adults, and serotonin syndrome. 2. Generalized anxiety disorder -lorazepam 0.25 mg a day PRN- Buspar 15 mg twice a day Benzodiazepines are a class of medicines that are widely used to treat conditions including anxiety, insomnia, and seizures (for example, Xanax, Valium, Ativan and Klonopin). The FDA conducted and reviewed several studies showing that serious health risks are associated with the combined use of opioids and benzodiazepines, as well as other drugs that depress the central nervous system or alcohol. In an effort to decrease the use of opioids and benzodiazepines, or opioids and other central nervous system depressants together, the FDA is adding Boxed Warnings - its strongest warnings include to the drug labeling of prescription opioid pain medications, prescription opioid cough medicines, and benzodiazepines (nearly 400 products in total). This type of warning is intended to call attention to serious or life-threatening risks. The specific risks include extreme sleepiness, respiratory depression, coma and . Additional changes include revisions to the Warnings and Precautions, Drug Interactions, and Patient Counseling Information sections of the labeling. 3. Long-term drug therapy 10/03/2024 Major depressive disorder, recurrent, mild (ICD-10 - F33.0) 1. major depression - Prozac 60 mg daily, Discuss LESTER-2 test to test for ADHD patient will consider educated on all medications, benefits, side effects and risk, and educated on depression, anxiety, and ADHD, mood d/o and educated on compliance of medications, metabolic and movement d/o education appointment is, continue therapy discussion with patient about course of treatment and patient instructions. education on serotonin syndrome SSRI/SNRI side effects discussed including but not limited to, gastric upset, nausea, vomiting, diarrhea and/or constipation, weight changes, sexual side effects including loss of libido, increased suicidal thoughts/behaviors in children and young adults, and serotonin syndrome. 2. Generalized anxiety disorder -lorazepam 0.25 mg a day PRN- Buspar 15 mg twice a day Benzodiazepines are a class of medicines that are widely used to treat conditions including anxiety, insomnia, and seizures (for example, Xanax, Valium, Ativan and Klonopin). The FDA conducted and reviewed several studies showing that serious health risks are associated with the combined use of opioids and benzodiazepines, as well as other drugs that depress the central nervous system or alcohol. In an effort to decrease the use of opioids and benzodiazepines, or opioids and other central nervous system depressants together, the FDA is adding Boxed Warnings - its strongest warnings include to the drug labeling of prescription opioid pain medications, prescription opioid cough medicines, and benzodiazepines (nearly 400 products in total). This type of warning is intended to call attention to serious or life-threatening risks. The specific risks include extreme sleepiness, respiratory depression, coma and . Additional changes include revisions to the Warnings and Precautions, Drug Interactions, and Patient Counseling Information sections of the labeling. 3. Long-term drug therapy 08/08/2024 Generalized anxiety disorder (ICD-10 - F41.1) 1. major depression - Prozac 60 mg daily, Discuss LESTER-2 test to test for ADHD patient will consider educated on all medications, benefits, side effects and risk, and educated on depression, anxiety, and ADHD, mood d/o and educated on compliance of medications, metabolic and movement d/o education appointment is, continue therapy discussion with patient about course of treatment and patient instructions. education on serotonin syndrome SSRI/SNRI side effects discussed including but not limited to, gastric upset, nausea, vomiting, diarrhea and/or constipation, weight changes, sexual side effects including loss of libido, increased suicidal thoughts/behaviors in children and young adults, and serotonin syndrome. 2. Generalized anxiety disorder -lorazepam 0.5 mg a day PRN- Buspar 15 mg twice a day Benzodiazepines are a class of medicines that are widely used to treat conditions including anxiety, insomnia, and seizures (for example, Xanax, Valium, Ativan and Klonopin). The FDA conducted and reviewed several studies showing that serious health risks are associated with the combined use of opioids and benzodiazepines, as well as other drugs that depress the central nervous system or alcohol. In an effort to decrease the use of opioids and benzodiazepines, or opioids and other central nervous system depressants together, the FDA is adding Boxed Warnings - its strongest warnings include to the drug labeling of prescription opioid pain medications, prescription opioid cough medicines, and benzodiazepines (nearly 400 products in total). This type of warning is intended to call attention to serious or life-threatening risks. The specific risks include extreme sleepiness, respiratory depression, coma and . Additional changes include revisions to the Warnings and Precautions, Drug Interactions, and Patient Counseling Information sections of the labeling. 3. Long-term drug therapy 05/10/2024 Generalized anxiety disorder (ICD-10 - F41.1) 1. Mild recurrent major depression - Prozac 60 mg daily, Discuss LESTER-2 test to test for ADHD patient will consider educated on all medications, benefits, side effects and risk, and educated on depression, anxiety, and ADHD, mood d/o and educated on compliance of medications, metabolic and movement d/o education appointment is, continue therapy discussion with patient about course of treatment and patient instructions. education on serotonin syndrome SSRI/SNRI side effects discussed including but not limited to, gastric upset, nausea, vomiting, diarrhea and/or constipation, weight changes, sexual side effects including loss of libido, increased suicidal thoughts/behaviors in children and young adults, and serotonin syndrome. 2. Generalized anxiety disorder -lorazepam 0.5 mg a day PRN- Buspar 15 mg twice a day Benzodiazepines are a class of medicines that are widely used to treat conditions including anxiety, insomnia, and seizures (for example, Xanax, Valium, Ativan and Klonopin). The FDA conducted and reviewed several studies showing that serious health risks are associated with the combined use of opioids and benzodiazepines, as well as other drugs that depress the central nervous system or alcohol. In an effort to decrease the use of opioids and benzodiazepines, or opioids and other central nervous system depressants together, the FDA is adding Boxed Warnings - its strongest warnings include to the drug labeling of prescription opioid pain medications, prescription opioid cough medicines, and benzodiazepines (nearly 400 products in total). This type of warning is intended to call attention to serious or life-threatening risks. The specific risks include extreme sleepiness, respiratory depression, coma and . Additional changes include revisions to the Warnings and Precautions, Drug Interactions, and Patient Counseling Information sections of the labeling. 3. Long-term drug therapy 01/02/2025 Major depressive disorder, recurrent, mild (ICD-10 - F33.0) 1. 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 education on serotonin syndrome SSRI/SNRI side effects discussed including but not limited to, gastric upset, nausea, vomiting, diarrhea and/or constipation, weight changes, sexual side effects including loss of libido, increased suicidal thoughts/behaviors in children and young adults, and serotonin syndrome. 2. Generalized anxiety disorder -lorazepam 0.25 mg a day PRN- Buspar 15 mg twice a day Benzodiazepines are a class of medicines that are widely used to treat conditions including anxiety, insomnia, and seizures (for example, Xanax, Valium, Ativan and Klonopin). The FDA conducted and reviewed several studies showing that serious health risks are associated with the combined use of opioids and benzodiazepines, as well as other drugs that depress the central nervous system or alcohol. In an effort to decrease the use of opioids and benzodiazepines, or opioids and other central nervous system depressants together, the FDA is adding Boxed Warnings - its strongest warnings include to the drug labeling of prescription opioid pain medications, prescription opioid cough medicines, and benzodiazepines (nearly 400 products in total). This type of warning is intended to call attention to serious or life-threatening risks. The specific risks include extreme sleepiness, respiratory depression, coma and . Additional changes include revisions to the Warnings and Precautions, Drug Interactions, and Patient Counseling Information sections of the labeling. 3. Long-term drug therapy 01/02/2025 Generalized anxiety disorder (ICD-10 - F41.1) 1. 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 education on serotonin syndrome SSRI/SNRI side effects discussed including but not limited to, gastric upset, nausea, vomiting, diarrhea and/or constipation, weight changes, sexual side effects including loss of libido, increased suicidal thoughts/behaviors in children and young adults, and serotonin syndrome. 2. Generalized anxiety disorder -lorazepam 0.25 mg a day PRN- Buspar 15 mg twice a day Benzodiazepines are a class of medicines that are widely used to treat conditions including anxiety, insomnia, and seizures (for example, Xanax, Valium, Ativan and Klonopin). The FDA conducted and reviewed several studies showing that serious health risks are associated with the combined use of opioids and benzodiazepines, as well as other drugs that depress the central nervous system or alcohol. In an effort to decrease the use of opioids and benzodiazepines, or opioids and other central nervous system depressants together, the FDA is adding Boxed Warnings - its strongest warnings include to the drug labeling of prescription opioid pain medications, prescription opioid cough medicines, and benzodiazepines (nearly 400 products in total). This type of warning is intended to call attention to serious or life-threatening risks. The specific risks include extreme sleepiness, respiratory depression, coma and . Additional changes include revisions to the Warnings and Precautions, Drug Interactions, and Patient Counseling Information sections of the labeling. 3. Long-term drug therapy 05/10/2024 Other [facility] (current) drug therapy (ICD-10 - Z79.899) 1. Mild recurrent major depression - Prozac 60 mg daily, Discuss LESTER-2 test to test for ADHD patient will consider educated on all medications, benefits, side effects and risk, and educated on depression, anxiety, and ADHD, mood d/o and educated on compliance of medications, metabolic and movement d/o education appointment is, continue therapy discussion with patient about course of treatment and patient instructions. education on serotonin syndrome SSRI/SNRI side effects discussed including but not limited to, gastric upset, nausea, vomiting, diarrhea and/or constipation, weight changes, sexual side effects including loss of libido, increased suicidal thoughts/behaviors in children and young adults, and serotonin syndrome. 2. Generalized anxiety disorder -lorazepam 0.5 mg a day PRN- Buspar 15 mg twice a day Benzodiazepines are a class of medicines that are widely used to treat conditions including anxiety, insomnia, and seizures (for example, Xanax, Valium, Ativan and Klonopin). The FDA conducted and reviewed several studies showing that serious health risks are associated with the combined use of opioids and benzodiazepines, as well as other drugs that depress the central nervous system or alcohol. In an effort to decrease the use of opioids and benzodiazepines, or opioids and other central nervous system depressants together, the FDA is adding Boxed Warnings - its strongest warnings include to the drug labeling of prescription opioid pain medications, prescription opioid cough medicines, and benzodiazepines (nearly 400 products in total). This type of warning is intended to call attention to serious or life-threatening risks. The specific risks include extreme sleepiness, respiratory depression, coma and . Additional changes include revisions to the Warnings and Precautions, Drug Interactions, and Patient Counseling Information sections of the labeling. 3. Long-term drug therapy 08/08/2024 Other watermelon inspector (current) drug therapy (ICD-10 - Z79.899) 1. major depression - Prozac 60 mg daily, Discuss LESTER-2 test to test for ADHD patient will consider educated on all medications, benefits, side effects and risk, and educated on depression, anxiety, and ADHD, mood d/o and educated on compliance of medications, metabolic and movement d/o education appointment is, continue therapy discussion with patient about course of treatment and patient instructions. education on serotonin syndrome SSRI/SNRI side effects discussed including but not limited to, gastric upset, nausea, vomiting, diarrhea and/or constipation, weight changes, sexual side effects including loss of libido, increased suicidal thoughts/behaviors in children and young adults, and serotonin syndrome. 2. Generalized anxiety disorder -lorazepam 0.5 mg a day PRN- Buspar 15 mg twice a day Benzodiazepines are a class of medicines that are widely used to treat conditions including anxiety, insomnia, and seizures (for example, Xanax, Valium, Ativan and Klonopin). The FDA conducted and reviewed several studies showing that serious health risks are associated with the combined use of opioids and benzodiazepines, as well as other drugs that depress the central nervous system or alcohol. In an effort to decrease the use of opioids and benzodiazepines, or opioids and other central nervous system depressants together, the FDA is adding Boxed Warnings - its strongest warnings include to the drug labeling of prescription opioid pain medications, prescription opioid cough medicines, and benzodiazepines (nearly 400 products in total). This type of warning is intended to call attention to serious or life-threatening risks. The specific risks include extreme sleepiness, respiratory depression, coma and . Additional changes include revisions to the Warnings and Precautions, Drug Interactions, and Patient Counseling Information sections of the labeling. 3. Long-term drug therapy 10/03/2024 Generalized anxiety disorder (ICD-10 - F41.1) 1. major depression - Prozac 60 mg daily, Discuss LESTER-2 test to test for ADHD patient will consider educated on all medications, benefits, side effects and risk, and educated on depression, anxiety, and ADHD, mood d/o and educated on compliance of medications, metabolic and movement d/o education appointment is, continue therapy discussion with patient about course of treatment and patient instructions. education on serotonin syndrome SSRI/SNRI side effects discussed including but not limited to, gastric upset, nausea, vomiting, diarrhea and/or constipation, weight changes, sexual side effects including loss of libido, increased suicidal thoughts/behaviors in children and young adults, and serotonin syndrome. 2. Generalized anxiety disorder -lorazepam 0.25 mg a day PRN- Buspar 15 mg twice a day Benzodiazepines are a class of medicines that are widely used to treat conditions including anxiety, insomnia, and seizures (for example, Xanax, Valium, Ativan and Klonopin). The FDA conducted and reviewed several studies showing that serious health risks are associated with the combined use of opioids and benzodiazepines, as well as other drugs that depress the central nervous system or alcohol. In an effort to decrease the use of opioids and benzodiazepines, or opioids and other central nervous system depressants together, the FDA is adding Boxed Warnings - its strongest warnings include to the drug labeling of prescription opioid pain medications, prescription opioid cough medicines, and benzodiazepines (nearly 400 products in total). This type of warning is intended to call attention to serious or life-threatening risks. The specific risks include extreme sleepiness, respiratory depression, coma and . Additional changes include revisions to the Warnings and Precautions, Drug Interactions, and Patient Counseling Information sections of the labeling. 3. Long-term drug therapy 10/03/2024 Other watermelon inspector (current) drug therapy (ICD-10 - Z79.899) 1. major depression - Prozac 60 mg daily, Discuss LESTER-2 test to test for ADHD patient will consider educated on all medications, benefits, side effects and risk, and educated on depression, anxiety, and ADHD, mood d/o and educated on compliance of medications, metabolic and movement d/o education appointment is, continue therapy discussion with patient about course of treatment and patient instructions. education on serotonin syndrome SSRI/SNRI side effects discussed including but not limited to, gastric upset, nausea, vomiting, diarrhea and/or constipation, weight changes, sexual side effects including loss of libido, increased suicidal thoughts/behaviors in children and young adults, and serotonin syndrome. 2. Generalized anxiety disorder -lorazepam 0.25 mg a day PRN- Buspar 15 mg twice a day Benzodiazepines are a class of medicines that are widely used to treat conditions including anxiety, insomnia, and seizures (for example, Xanax, Valium, Ativan and Klonopin). The FDA conducted and reviewed several studies showing that serious health risks are associated with the combined use of opioids and benzodiazepines, as well as other drugs that depress the central nervous system or alcohol. In an effort to decrease the use of opioids and benzodiazepines, or opioids and other central nervous system depressants together, the FDA is adding Boxed Warnings - its strongest warnings include to the drug labeling of prescription opioid pain medications, prescription opioid cough medicines, and benzodiazepines (nearly 400 products in total). This type of warning is intended to call attention to serious or life-threatening risks. The specific risks include extreme sleepiness, respiratory depression, coma and . Additional changes include revisions to the Warnings and Precautions, Drug Interactions, and Patient Counseling Information sections of the labeling. 3. Long-term drug therapy 01/02/2025 Other [facility] (current) drug therapy (ICD-10 - Z79.899) 1. 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 education on serotonin syndrome SSRI/SNRI side effects discussed including but not limited to, gastric upset, nausea, vomiting, diarrhea and/or constipation, weight changes, sexual side effects including loss of libido, increased suicidal thoughts/behaviors in children and young adults, and serotonin syndrome. 2. Generalized anxiety disorder -lorazepam 0.25 mg a day PRN- Buspar 15 mg twice a day Benzodiazepines are a class of medicines that are widely used to treat conditions including anxiety, insomnia, and seizures (for example, Xanax, Valium, Ativan and Klonopin). The FDA conducted and reviewed several studies showing that serious health risks are associated with the combined use of opioids and benzodiazepines, as well as other drugs that depress the central nervous system or alcohol. In an effort to decrease the use of opioids and benzodiazepines, or opioids and other central nervous system depressants together, the FDA is adding Boxed Warnings - its strongest warnings include to the drug labeling of prescription opioid pain medications, prescription opioid cough medicines, and benzodiazepines (nearly 400 products in total). This type of warning is intended to call attention to serious or life-threatening risks. The specific risks include extreme sleepiness, respiratory depression, coma and . Additional changes include revisions to the Warnings and Precautions, Drug Interactions, and Patient Counseling Information sections of the labeling. 3. Long-term drug therapy Plan Of Treatment Next Appt Details Provider Name:Christine Dominguez , 04/05/2025 09:30:00 AM, [address], [facility], [place], [address], Insurance Providers Payer Name Payer Address Payer Phone Subscriber Number Group Number Insured Name Patient Relationship to Insured Coverage Start Date Coverage End Date [facility] [address] [place] [phone] [id number] DENIS FRANKS Self - patient is the insured Medical (General) History Medical History History ICD Code Problems: Generalized anxiety disorder Long-term drug therapy Mild recurrent major depression , Surgical History Surgery Date(Month/Year) Insertion of prosthesis for breast ([id number]) Breast surgery (10233) 08/27/2023 Oophorectomy ([id number]) 01/13/2017
== END 2025-02-21 13:42 | disposition home or self-care (01) ==
LOC: ANHFOHIMG 13:42
PROVIDERS: PCP Family Medicine
DX: Z40.01 Encounter for prophylactic removal of breast (principal); R91.8 Other nonspecific abnormal finding of lung field; Z98.890 Other specified postprocedural states
CPT/HCPCS: 76642; 77062; 77066; G0279